=== PATIENT | female | born 1990 | race American Indian/Alaskan Native ===

== ENCOUNTER 2017-02-17 06:50 | Day surgery (SDC) | payer MEDICARE ==
--- NOTE | 2017-02-17 08:14 | Discharge Summary ---
Providers - Providers Date of discharge: 02/17/17 Attending physician: BRIDGER MAGALLANES Hospitalization Condition: Good Procedures: egd Disposition: - TO HOME OR SELFCARE Core Measure Documentation - Palliative Care Palliative Care/ Comfort Measures: Not Applicable - Core Measures Any of the following diagnoses?: none Exam - Physical Exam Narrative exam: unchanged from pre-op Plan Activity: no restrictions Weight Bearing Status: Full Weight Bearing Diet: regular
--- NOTE | 2017-02-17 08:40 | Anesthesia Day of Surgery ---
Anesthesia Day of Surgery - Day of Surgery Patient Examined: Yes Patient H&P Reviewed: Yes Patient is NPO: Yes
--- NOTE | 2017-02-17 08:40 | Anesthesia Consultation ---
Anesthesia Consult and Med Hx Date of service: 02/17/17 - Airway Anesthetic Teeth Evaluation: Good ROM Head & Neck: Adequate Mental/Hyoid Distance: Adequate Mallampati Class: Class II Intubation Access Assessment: Probably Good - Pulmonary Exam CTA: Yes - Cardiac Exam Cardiac Exam: RRR - Pre-Operative Health Status ASA Pre-Surgery Classification: ASA3 Proposed Anesthetic Plan: MAC - Pulmonary Hx Asthma: Yes (severe asthma, uses rescue inhaler 2-3X week) Hx Sleep Apnea: No - Cardiovascular System Hx Hypertension: No (, high cholesterol) - Central Nervous System Hx Neuromuscular Disorder: No Hx Psychiatric Problems: No - Gastrointestinal Hx Gastroesophageal Reflux Disease: No - Endocrine Hx Renal Disease: No Hx Insulin Dependent Diabetes: No - Hematic Hx Anemia: No Hx Sickle Cell Disease: No - Other Systems Hx Alcohol Use: No Hx Substance Use: No Hx Cancer: No Hx Obesity: Yes (BMI 40.7)
[2017-02-17] MEDS ORDERED: NACL 0.9% 1000 ML 1,000 ML IV SCH (09:00)
[2017-02-17] MEDS ORDERED: DIPRIVAN 10 MG/ML IV ONE (09:06)
--- NOTE | 2017-02-17 09:38 | Operative Report ---
Operative Report Operative Report: OPERATIVE REPORT - EGD DATE 02/17/17 SURGERY: Upper endoscopy. SURGEON: Dante Medeliln M.D. PRE OP DX: gerd POST OP DX: hiatal hernia TYPE OF ANESTHESIA: MAC. ESTIMATED BLOOD LOSS: None. COMPLICATIONS: None. SPECIMENS REMOVED: None. FINDINGS: 1. Small hiatal hernia. 2. Otherwise, normal esophagus, stomach and first portion of duodenum. INDICATIONS:INDICATION FOR PROCEDURE: Patient is a 26-year-old female with a long history of morbid obesity. She is planned to have a weight loss procedure and is here for preoperative planning EGD. We are looking for any pathology that will prohibitive for her planned bariatric procedure. PROCEDURE DETAILS: After consent was reviewed, patient was taken back to the operating room where patient was placed in the left lateral decubitus position and a bite block was placed in the mouth. After a time-out was called, MAC anesthesia was initiated. I then passed the endoscope into her oropharynx, into her esophagus, visualized the entire esophagus, which was all within normal limits. I then visualized the stomach and the first portion of the duodenum and there were no abnormalities I could clearly visualize. I then retroflexed the scope in the stomach and visualized the hiatus and I could see a small hiatal hernia. I then desufflated the stomach and removed the endoscope. Patient tolerated procedure well and was transferred to recovery room in good and stable condition.
--- NOTE | 2017-02-17 10:27 | Post Anesthesia Evaluation ---
- Post Anesthesia Evaluation Patient Participated: Yes Airway Patent: Yes Stable Respiratory Function: Yes Nausea/Vomiting: No Temp > 96.8F: Yes Pain Manageable: Yes Adequeate Hydration: Yes Anesthesia Complications: No Block Receding Appropriately: Not Applicable Patient on Ventilator: No
[2017-02-17 10:40] VITALS: BP 116/59
== END 2017-02-17 06:51 | disposition home or self-care (01) ==
LOC: GIO 06:50
PROVIDERS: ATTEND Surgery
DX: K44.9 Diaphragmatic hernia without obstruction or gangrene (principal); K21.9 Gastro-esophageal reflux disease without esophagitis; E66.01 Morbid (severe) obesity due to excess calories; J45.909 Unspecified asthma, uncomplicated; Z68.41 Body mass index [BMI] 40.0-44.9, adult; Z98.51 Tubal ligation status
CPT/HCPCS: 43235; 81025; J2704; J7030

== ENCOUNTER 2017-02-24 07:30 | Inpatient (IN) | payer MEDICARE ==
[~2017-02-24 07:30] MED LIST: LACTATED RINGERS 1,000 ML IV SCH; MARCAINE-EPI/PF 0.5%-1:200,000 INFILTRATI ONE; PEPCID IV NR; TRANSDERM-SCOP TD NR; VERSED IV NR; XYLOCAINE 1% 20 mL ONE
--- NOTE | 2017-02-24 09:26 | Anesthesia Day of Surgery ---
Anesthesia Day of Surgery - Day of Surgery Patient Examined: Yes Patient H&P Reviewed: Yes Patient is NPO: Yes
--- NOTE | 2017-02-24 09:26 | Anesthesia Consultation ---
Anesthesia Consult and Med Hx Date of service: 02/24/17 - Airway Anesthetic Teeth Evaluation: Good ROM Head & Neck: Adequate Mental/Hyoid Distance: Adequate Mallampati Class: Class I Intubation Access Assessment: Probably Good - Pulmonary Exam CTA: Yes - Cardiac Exam Cardiac Exam: RRR - Pre-Operative Health Status ASA Pre-Surgery Classification: ASA2 Proposed Anesthetic Plan: General - Pulmonary Hx Smoking: Yes (quit 6 months ago) Hx Asthma: Yes (weather, activity and when sick. last used inhaler 2wks ago) Hx Sleep Apnea: No - Cardiovascular System Hx Hypertension: No (, high cholesterol per bloodwork for surgery) - Central Nervous System Hx Neuromuscular Disorder: No Hx Psychiatric Problems: No - Gastrointestinal Hx Gastroesophageal Reflux Disease: No - Endocrine Hx Renal Disease: No Hx Insulin Dependent Diabetes: No - Hematic Hx Anemia: No Hx Sickle Cell Disease: No - Other Systems Hx Alcohol Use: No Hx Substance Use: No Hx Cancer: No Hx Obesity: Yes
[2017-02-24] MEDS ORDERED: NORCO PO PRN (09:38)
[2017-02-24] MEDS ORDERED: PROVENTIL IH PRN (09:41)
[2017-02-24] MEDS ORDERED: ATROVENT IH PRN (09:41)
[2017-02-24] MEDS ORDERED: PROAIR IH PRN (09:41)
[2017-02-24] MEDS ORDERED: DIPRIVAN 10 MG/ML IV ONE (09:42)
[2017-02-24] MEDS ORDERED: SUBLIMAZE ONE (09:42)
[2017-02-24] MEDS ORDERED: ROBINUL ONE ×3 (09:45→12:22)
[2017-02-24] MEDS ORDERED: DECADRON ONE (09:45)
[2017-02-24] MEDS ORDERED: XYLOCAINE MPF 2% ONE (09:45)
[2017-02-24] MEDS ORDERED: NEOSTIGMINE ONE (09:47)
[2017-02-24] MEDS ORDERED: MARCAINE-EPI/PF 0.5%-1:200,000 INFILTRATI ONE ×2 (09:50→11:48)
[2017-02-24] MEDS ORDERED: XYLOCAINE 1% 20 mL ONE (09:50)
[2017-02-24 09:51] LABS: Bilirubin,Urine NEG (Negative); Blood,Urine SM (Negative); Ketones,Urine NEG (Negative); Leukocyte Esterase,Urine NEG (Negative); Mucus,Urine FEW /HPF; Nitrite,Urine NEG (Negative); Protein,Urine <15 mg/dL mg/dL (Negative); Urobilinogen,Urine < 2.0 mg/dL (<2.0)
[2017-02-24] MEDS ORDERED: FLAGYL 500 MG/100 ML 500 MG/100 ML BAG IV NR (10:00)
[2017-02-24] MEDS ORDERED: NON-FORMULARY (Mometasone/Formoterol [Dulera 100 Mcg/5 Mcg Inhaler] 2 PUFF) IH SCH (10:00)
[2017-02-24] MEDS ORDERED: ADVAIR INHALATION SCH (10:00)
[2017-02-24] MEDS ORDERED: LOVENOX SUB-Q NR (10:00)
[2017-02-24] MEDS ORDERED: LOVENOX SUB-Q SCH ×2 (10:00)
[2017-02-24] MEDS ORDERED: ANCEF/STERILE WATER 2 GM/20 ML 2 GM/20 ML SYRINGE IV NR (10:00)
[2017-02-24] MEDS ORDERED: VERSED ONE (10:17)
[2017-02-24] MEDS ORDERED: DILAUDID ONE (10:52)
[2017-02-24] MEDS ORDERED: NACL 0.9% 100 ML ONE (10:56)
[2017-02-24] MEDS ORDERED: NEO SYNEPHRINE ONE (10:56)
[2017-02-24] MEDS ORDERED: LACTATED RINGERS 1,000 ML ONE (10:56)
[2017-02-24] MEDS ORDERED: PROAIR IH ONE (10:56)
[2017-02-24] MEDS ORDERED: LACTATED RINGERS 1,000 ML IV SCH (11:00)
[2017-02-24] MEDS ORDERED: MORPHINE IV PRN (11:00)
[2017-02-24] MEDS ORDERED: APRESOLINE IV PRN (11:00)
[2017-02-24] MEDS ORDERED: ZOFRAN IV PRN (11:00)
[2017-02-24] MEDS ORDERED: NACL 0.9% IR ONE (11:47)
[2017-02-24] MEDS ORDERED: XYLOCAINE 1% 20 mL INFILTRATI ONE (11:47)
--- NOTE | 2017-02-24 12:34 | Operative Report ---
Operative Report Operative Report: Operative Report DATE OF PROCEDURE: 02/24/17 PREOPERATIVE DIAGNOSES: Morbid obesity, hiatal hernia POSTOPERATIVE DIAGNOSES: 1.same as pre-op SURGEON: Dnate Medellin M.D. STUDENT FINANCIAL AID MANAGER: Ayaka Rowland MD, Blair Mccormick CSA PROCEDURE: 1. laparoscopic sleeve gastrectomy 2. laparoscopic hiatal hernia repair ANESTHESIA: General. ESTIMATED BLOOD LOSS: <5 mL. COMPLICATIONS: None. SPECIMEN: Partial gastrectomy. FINDINGS: 1. hiatal hernia INDICATION FOR PROCEDURE: Patient is a 26-year-old female with a long history of morbid obesity. She has tried multiple efforts at weight loss without meterman success. She is here today for sleeve gastrectomy. PROCEDURE IN DETAIL: After consent was reviewed, patient was taken back to the operating room, where patient was placed supine on the bed with both arms out. The patient's legs were doubly strapped to the bed. Patient had a foot board in place. Patient had a body warmer placed by anesthesia. Patient was then prepped and draped in normal sterile surgical fashion. After a time-out was called, I made a stab incision in the left subcostal area and placed a Veress needle through this incision and insufflated the abdomen to 18 mmHg pressure. I then counted down a handsbreadth below the xiphoid process in the midline and slightly left lateral injected local anesthetic and made about 1.5 cm transverse incision. I then used a 5-mm Optiview trocar to enter into the abdomen. I then placed a 45-degree scope through this port and inspected the abdomen. There was no injury on entry of the abdomen. I then placed one 5-mm port in the right upper quadrant, and one subxiphoid below the costovertebral angle. I then placed a 15-mm port about a handsbreadth right lateral and inferior to my anterior axillary port. I then placed left upper quadrant port along the anterior axillary line in a similar fashion. I then placed the liver retractor through the subxiphoid port and placed the patient in full reverse Trendelenburg. The GE junction was noted to above the level of the diaphragm. The right and left crura were skeletonized accentuating a small hiatal hernia. An anterior cruraplasty was performed with a figure-of-8 stitch using surgidac suture to reapproximate the crura. The stomach and 2cm of distal esophagus were resting in the abdominal cavity without tension. I then identified the pylorus and then counted off 6cm from the pylorus. I then used a LigaSure cutting device to enter into the lesser sac. At that point and then I took down the short gastrics all the way up to the left leslie. Then I had anesthesia pass down a 36-Sudanese bougie along the lesser curvature of the stomach. I made sure everything else was out of the abdomen except the bougie. I then created my gastric sleeve using a 60-mm laparoscopic stapler. . The sleeve looked good without any twisting or torsion. I then had anesthesia to remove the bougie. Hemostasis was obtained along the staple line. I then used Tiseel along the entirety of the staple line and some on the liver. I then removed liver grasper and took it off the field. I then removed the stomach through the 15-mm port. I then closed that fascia with a #1 PDS in a [id number] fashion using a Ángel-Hetal. I then desufflated the abdomen and then removed all port sites. I then closed the incisions with 4-0 Monocryl in subcuticular fashion. I then dressed the wounds with Dermabond. Patient tolerated the procedure well and was transferred to recovery room in good and stable condition.
[2017-02-24] MEDS: DILAUDID IV PRN ×6 (13:05→20:47)
[2017-02-24] MEDS: REGLAN IV PRN (13:14)
--- NOTE | 2017-02-24 14:27 | Post Anesthesia Evaluation ---
- Post Anesthesia Evaluation Patient Participated: Yes Airway Patent: Yes Stable Respiratory Function: Yes Temp > 96.8F: Yes Pain Manageable: Yes Adequeate Hydration: Yes Anesthesia Complications: No
--- NOTE | 2017-02-24 16:10 | Post Anesthesia Evaluation ---
- Post Anesthesia Evaluation Patient Participated: Yes Airway Patent: Yes Stable Respiratory Function: Yes Temp > 96.8F: Yes Pain Manageable: Yes Adequeate Hydration: Yes Anesthesia Complications: No
[2017-02-24] MEDS: MYLICON PO PRN (19:31)
[2017-02-24] MEDS: BROVANA NEBU IH SCH (20:03)
[2017-02-24] MEDS: PULMICORT IH SCH (20:03)
[2017-02-24] MEDS: ANCEF/NS 1 GM/50 ML 1 GM/50 ML BAG IV SCH (20:45)
[2017-02-24] MEDS: FLAGYL 500 MG/100 ML 500 MG/100 ML BAG IV SCH (22:07)
[2017-02-24] MEDS: LOVENOX SUB-Q SCH (22:08)
[2017-02-24] MEDS: TORADOL IV SCH (22:08)
[2017-02-25] MEDS: DILAUDID IV PRN ×2 (00:06→04:00)
[2017-02-25] MEDS: REGLAN IV PRN (00:06)
[2017-02-25 04:30] LABS: Alanine Aminotransferase 49 units/L (7-56); Albumin 3.8 g/dL (3.9-5); Albumin/Globulin Ratio 1.1 %; Alkaline Phosphatase 54 units/L (35-129); Anion Gap 17 mmol/L; Blood Urea Nitrogen 9 mg/dL (7-17); Carbon Dioxide 26 mmol/L (22-30); Chloride 96.4 mmol/L (98-107); Glucose 112 mg/dL (65-100); Potassium 4.3 mmol/L (3.6-5.0); Sodium 135 mmol/L (137-145); Total Protein 7.4 g/dL (6.3-8.2)
[2017-02-25 04:48] LABS: Basophils % (Auto) 0.1 % (0.0-1.8); Hematocrit 33.5 % (30.3-42.9); Hemoglobin 11.4 gm/dl (10.1-14.3); Mean Corpuscular HGB Conc 34 % (30-34); Mean Corpuscular Hemoglobin 30 pg (28-32); Mean Corpuscular Volume 88 fl (79-97); Platelet Count 245 K/mm3 (140-440); Red Blood Count 3.81 M/mm3 (3.65-5.03); Red Cell Distribution Width 12.9 % (13.2-15.2); White Blood Count 11.3 K/mm3 (4.5-11.0)
[2017-02-25] MEDS: ANCEF/NS 1 GM/50 ML 1 GM/50 ML BAG IV SCH (05:00)
[2017-02-25] MEDS: FLAGYL 500 MG/100 ML 500 MG/100 ML BAG IV SCH (06:00)
[2017-02-25] MEDS: TORADOL IV SCH (06:36)
[2017-02-25] MEDS: PULMICORT IH SCH (08:14)
[2017-02-25] MEDS: BROVANA NEBU IH SCH (08:14)
[2017-02-25 08:35] VITALS: BP 108/57
[2017-02-25] MEDS: MYLICON PO PRN (08:59)
[2017-02-25] MEDS: LOVENOX SUB-Q SCH (08:59)
--- NOTE | 2017-02-25 11:26 | Discharge Summary ---
Providers - Providers Date of Admission: 02/24/17 08:46 Attending physician: BRIDGER MAGALLANES Primary care physician: GOLF COURSE STARTER Hospitalization Reason for admission: laparoscopic sleeve gastrectomy Condition: Good Hospital course: 26 y.o. F admitted for laparoscopic sleeve gastrectomy and hiatal hernia repair. Pt tolerated the procedure well. On POD 1 she was able to tolerate liquids and ambulate. Her pain was controlled. Disposition: DC-01 TO HOME OR SELFCARE Core Measure Documentation - Palliative Care Palliative Care/ Comfort Measures: Not Applicable - Core Measures Any of the following diagnoses?: none Exam - Physical Exam Narrative exam: VSS Gen: A+Ox3 Resp: equal rise and fall of chest Abd: soft, obese, tender at incision sites. no rebound no guarding. incisions cdi - Constitutional Vitals: Temp Pulse Resp BP Pulse Ox 98.6 F 55 L 20 108/57 97 02/25/17 07:45 02/25/17 08:30 02/25/17 08:58 02/25/17 07:47 02/25/17 07:47 Plan Activity: other (no lifting >15lbs for 6 weeks ) Diet: clear liquids (sugar free clears ) Wound: other (may shower in 2 days ) Additional Instructions: Wound Check Monday Follow up with: PRIMARY CAREMD [Primary Care Provider] - 7 Days
[2017-02-27] MEDS ORDERED: TRANSDERM-SCOP TD SCH (10:00)
== END 2017-02-25 13:30 | disposition home or self-care (01) | DRG 327 ==
LOC: EDSTATUS 07:30 → 3A 08:46 → 3B-SURG 18:50
PROVIDERS: ADMIT Surgery; ATTEND Surgery
PROC: 0DB64Z3 Excision of Stomach, Percutaneous Endoscopic Approach, Vertical (ICD-10-PCS; principal; 2017-02-24)
PROC: 0BQS4ZZ (ICD-10-PCS; 2017-02-24)
PROC: 0BQR4ZZ (ICD-10-PCS; 2017-02-24)
DX: K44.9 Diaphragmatic hernia without obstruction or gangrene (principal); Z68.41 Body mass index [BMI] 40.0-44.9, adult; E66.01 Morbid (severe) obesity due to excess calories
CPT/HCPCS: 36415; 80053; 81001; 81025; 85025; 88307; 94640; C9250; J0690; J1100; J1170; J1650; J1885; J2250; J2370; J2405; J2704; J2710; J2765; J3010; J7120